=== PATIENT | male | born 1975 | race Caucasian/White ===

== ENCOUNTER 2022-12-23 03:33 | Emergency (ER) | payer SELFPAY ==
[~2022-12-23] VITALS: Ht 170.2 cm; Wt 99.8 kg
[2022-12-23 03:33] VITALS: BP 122/73
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
--- NOTE | 2022-12-23 04:10 | NUR ---
Patient discharged with v/s stable. Written and verbal after care instructions given and explained. Patient verbalized understanding. Ambulatory with in custody. All questions addressed prior to discharge. Advised to follow up with PMD.
== END 2022-12-23 04:10 ==
LOC: MED 03:33
DX: S01.511A Laceration without foreign body of lip, initial encounter (principal); Y04.0XXA Assault by unarmed brawl or fight, initial encounter; Y93.89 Activity, other specified; Y92.89 Other specified places as the place of occurrence of the external cause; Y99.8 Other external cause status
CPT/HCPCS: 99283